=== PATIENT | male | born 1940 | race African-American/Black ===

== ENCOUNTER 2016-04-19 11:30 | Outpatient (CLI) | payer MEDICARE, OTHER | END 2016-04-19 11:31 | disposition home or self-care (01) | DX: I42.9 Cardiomyopathy, unspecified (principal); R06.09 Other forms of dyspnea ==

== ENCOUNTER 2017-05-15 12:41 | Outpatient (CLI) | payer MEDICARE, OTHER | END 2017-05-15 12:42 | disposition critical access hospital (66) | LOC: EMS 12:41 | PROVIDERS: ATTEND Surgery | DX: R41.82 Altered mental status, unspecified (principal) | CPT/HCPCS: A0425; A0427 ==

== ENCOUNTER 2017-05-15 12:59 | Inpatient (IN) | payer MEDICARE, OTHER ==
--- NOTE | 2017-05-15 13:20 | ED Physician Documentation ---
History of Present Illness - Stated complaint Stated Complaint: ALOC - Chief complaint Chief Complaint: General - History obtained from History obtained from: Patient, EMS - History of Present Illness Timing: Today (76-year-old gentleman with history of multiple myeloma, coronary disease with biventricular AICD, chronic left bundle branch block congestive heart failure, type 2 diabetes on insulin and COPD on home oxygen. He is he has been sick for a few days with cough and increased shortness of breath. He says he was seen in the clinic 2 days ago and it was determined he did not have pneumonia. He was started on steroids. I guess his found him obtunded on the couch and paramedics were summoned and found him unresponsive with a blood sugar that was 17. He was administered IV D50 and he did not respond, a second blood sugar was still low, after a second dose of IV D50 and he became conscious. He has poor recollection of the events for today but does admit to having severe chills and cough and increased shortness of breath over his baseline. He has been on steroids for 2 days.) Review of Systems Constitutional: reports: Chills, Fatigue Cardiac: denies: Chest pain / pressure, Palpitations Respiratory: reports: Dyspnea, Cough GI: reports: Other (Protuberant abdominal wall/umbilical hernia that is always out per him.). denies: Abdominal Pain Musculoskeletal: reports: Extremity swelling (Pedal edema that is not greater than his baseline) PD PAST MEDICAL HISTORY - Past Medical History Cardiovascular: Congestive heart failure, Hypertension, High cholesterol, Coronary artery disease, DE, Atrial fibrillation, Arrhythmia Respiratory: None Neuro: None Endocrine/Autoimmune: Type 2 diabetes, HyPOthyroidism GI: Chronic constipation, Pancreatitis : Renal insuffiency HEENT: None Psych: None Musculoskeletal: Osteoarthritis, Gout Derm: None - Past Surgical History Past Surgical History: Yes Ortho: Knee replacement Cardiovascular: Pacemaker, AICD - Present Medications Home Medications: Ambulatory Orders Medication Instructions Recorded Confirmed Allopurinol 300 mg PO DAILY 01/19/13 05/15/17 Digoxin [Lanoxin] 125 mcg PO DAILY 01/19/13 05/15/17 Furosemide [Lasix] 160 mg PO DAILY 01/19/13 05/15/17 Levothyroxine Sodium [Levoxyl] 125 mcg PO QDAC 01/19/13 05/15/17 Lovastatin [Altoprev] 20 mg PO HS 01/19/13 05/15/17 Potassium Chloride 20 meq PO DAILY 01/19/13 05/15/17 Ranitidine HCl [Acid Control] 150 mg PO BID 01/19/13 05/15/17 Zolpidem [Ambien] 10 mg PO QPM PRN 01/19/13 05/15/17 Omeprazole [PriLOSEC] 20 mg PO QPM 08/13/13 05/15/17 Metoclopramide [Reglan] 5 mg PO TID PRN 09/02/14 05/15/17 Alprazolam 0.5 mg PO TID PRN 01/13/16 05/15/17 Carvedilol 25 mg PO BID 01/13/16 05/15/17 Cyclobenzaprine HCl 5 mg PO TID PRN 01/13/16 05/15/17 Dexamethasone 20 mg PO FR 01/13/16 05/15/17 Doxazosin Mesylate 2 mg PO QPM 01/13/16 05/15/17 Hydromorphone HCl [Dilaudid] 4 mg PO QID PRN 01/13/16 05/15/17 Losartan Potassium [Losartan 100 mg PO DAILY 05/15/17 05/15/17 Potassium] fentaNYL [Fentanyl 75mcg patch] 1 each TD Q3D 05/15/17 05/15/17 - Allergies Allergies/Adverse Reactions: Allergies Allergy/AdvReac Type Severity Reaction Status Date / Time oxycodone HCl * Allergy Intermediate unknown Verified 01/29/17 11:49 [From Roxicet] rosiglitazone maleate * Allergy Intermediate Blood in Verified 01/29/17 11:49 [From Avandia] Urine valsartan [From Exforge] Allergy Intermediate Abd pain, Verified 01/29/17 11:49 sweats, nausea acetic acid Allergy Mild makes Verified 01/29/17 11:49 scalp itch amlodipine besylate * Allergy Unknown Abd pain, Verified 01/29/17 11:49 [From Exforge] sweats, nausea celecoxib [From Celebrex] Allergy Unknown unknown Verified 01/29/17 11:49 iron Allergy Unknown Verified 01/29/17 11:49 - Social History Does the pt smoke?: Yes Smoking Status: Current every day smoker Does the pt drink ETOH?: No Does the pt have substance abuse?: No - Family History Family history: reports: Non contributory - Immunizations Immunizations are current?: No Immunizations: Other immun not current - POLST Patient has POLST: Yes PD ED PE NORMAL - Vitals Vital signs reviewed: Yes - General General: Other (He is alert and oriented, but has poor recollection of the events for the day, he has labored breathing and poor pulse oximetries despite being on a nasal cannula.) - HEENT HEENT: PERRL, EOMI - Neck Neck: Supple, no meningeal sign, No bony TTP - Cardiac Cardiac: Other (Hard to make out the details of his heart rate and rhythm and sounds given loud breath sounds and labored breathing.) - Respiratory Respiratory: Other (Loud rhonchorous breath sounds with tachypnea) - Abdomen Abdomen: Other (Distended belly with a protuberant umbilical hernia, no tenderness.) - Back Back: No CVA TTP, No spinal TTP - Derm Derm: Normal color, Warm and dry - Extremities Extremities: Other (Mild pedal edema up to the mid calf, pitting, symmetric.) - Neuro Neuro: Alert and oriented X 3, Normal speech Eye Opening: Spontaneous Motor: Obeys Commands Verbal: Oriented GCS Score: 15 - Psych Psych: Normal mood, Normal affect Results - Vitals Vitals: Vital Signs - 24 hr 05/15/17 05/15/17 05/15/17 12:59 13:26 14:48 Temperature 36.1 C L 36.2 C L Heart Rate 90 111 H 102 H Respiratory 22 18 33 H Rate Blood Pressure 158/101 H 131/79 H 132/84 H O2 Saturation 85 L 100 96 05/15/17 15:58 Temperature 37.1 C Heart Rate 93 Respiratory 27 H Rate Blood Pressure 119/72 O2 Saturation 92 Oxygen O2 Source Room air - EKG (time done) 1326 Rate: Rate (enter#) (99) Rhythm: Other (Underlying atrial fibrillation with ventricular paced complexes, no other gross abnormality.) Computer interpretation: Agree with computer - Labs Labs: Laboratory Tests 05/15/17 05/15/17 05/15/17 13:20 13:48 13:48 WBC 10.0 RBC 3.35 L Hgb 10.4 L Hct 32.8 L MCV 97.7 H MCH 31.1 H MCHC 31.8 L RDW 18.0 H Plt Count 132 MPV 8.6 Neut # 7.9 H Lymph # 1.5 Jones # 0.6 Eos # 0.1 Baso # 0.0 Absolute Nucleated RBC 0.02 Nucleated RBC % 0.2 PT 12.0 INR 1.1 APTT 28.6 D-Dimer 389.1 H Sodium Potassium Chloride Carbon Dioxide Anion Gap BUN Creatinine Estimated GFR (MDRD) Glucose Lactic Acid Calcium Magnesium Total Bilirubin AST ALT Alkaline Phosphatase Total Creatine Kinase CK-MB (CK-2) Troponin I Total Protein Albumin Globulin Albumin/Globulin Ratio Lipase TSH Urine Color YELLOW Urine Clarity CLOUDY Urine pH 5.5 Ur Specific Anson 1.015 Urine Protein NEGATIVE Urine Glucose (UA) 250 H Urine Ketones NEGATIVE Urine Occult Blood NEGATIVE Urine Nitrite POSITIVE H Urine Bilirubin NEGATIVE Urine Urobilinogen 0.2 (NORMAL) Ur Leukocyte Esterase SMALL H Urine RBC 0-5 Urine WBC 6-10 H Ur Squamous Epith Cells NONE SEEN Urine Bacteria Many H Ur Microscopic Review INDICATED Urine Culture Comments INDICATED Last Dose Date Last Dose Time Digoxin Ethyl Alcohol 05/15/17 05/15/17 05/15/17 13:48 13:48 13:48 WBC RBC Hgb Hct MCV MCH MCHC RDW Plt Count MPV Neut # Lymph # Jones # Eos # Baso # Absolute Nucleated RBC Nucleated RBC % PT INR APTT D-Dimer Sodium 140 Potassium 4.3 Chloride 96 L Carbon Dioxide 33 H Anion Gap 11.0 BUN 32 H Creatinine 1.5 H Estimated GFR (MDRD) 55 L Glucose 197 H Lactic Acid 1.3 Calcium 10.1 Magnesium 1.9 Total Bilirubin 0.8 AST 18 ALT 20 Alkaline Phosphatase 61 Total Creatine Kinase 89 CK-MB (CK-2) 6.6 H Troponin I 0.20 Total Protein 6.7 Albumin 3.7 Globulin 3.0 Albumin/Globulin Ratio 1.2 Lipase < 10 L TSH Urine Color Urine Clarity Urine pH Ur Specific Anson Urine Protein Urine Glucose (UA) Urine Ketones Urine Occult Blood Urine Nitrite Urine Bilirubin Urine Urobilinogen Ur Leukocyte Esterase Urine RBC Urine WBC Ur Squamous Epith Cells Urine Bacteria Ur Microscopic Review Urine Culture Comments Last Dose Date Last Dose Time Digoxin Ethyl Alcohol < 5.0 05/15/17 05/15/17 13:48 13:48 WBC RBC Hgb Hct MCV MCH MCHC RDW Plt Count MPV Neut # Lymph # Jones # Eos # Baso # Absolute Nucleated RBC Nucleated RBC % PT INR APTT D-Dimer Sodium Potassium Chloride Carbon Dioxide Anion Gap BUN Creatinine Estimated GFR (MDRD) Glucose Lactic Acid Calcium Magnesium Total Bilirubin AST ALT Alkaline Phosphatase Total Creatine Kinase CK-MB (CK-2) Troponin I Total Protein Albumin Globulin Albumin/Globulin Ratio Lipase TSH 0.58 Urine Color Urine Clarity Urine pH Ur Specific Anson Urine Protein Urine Glucose (UA) Urine Ketones Urine Occult Blood Urine Nitrite Urine Bilirubin Urine Urobilinogen Ur Leukocyte Esterase Urine RBC Urine WBC Ur Squamous Epith Cells Urine Bacteria Ur Microscopic Review Urine Culture Comments Last Dose Date Unknown Last Dose Time Unknown Digoxin 1.8 Ethyl Alcohol - Rads (name of study) 1v CHest Radiology: EMP read contemporaneously (LLL PNA) PD MEDICAL DECISION MAKING - ED course ED course: 76-year-old gentleman with multiple comorbidities presents with labored breathing, hypoxemia, and hypoglycemia that was fairly resistant to treatment at home and required 2 A of D50 prehospital. On examination now he is labored breathing and some pedal edema which although he says is at his baseline he also admits his weight is up and his thinks the pedal edema is worse than normal. He is found to have both a UTI and pneumonia which is covered with Rocephin and Levaquin. He will be admitted for further evaluation and treatment. Call to the hospitalist for admission at 3:05 PM. Departure - Departure Disposition: [facility] DC/Xfer Clinical Impression: Acute UTI (urinary tract infection), Hypoglycemia, Hypoxemia Diabetes Qualifiers: Diabetes mellitus type: type 2 Diabetes mellitus complication status: with hypoglycemia Diabetes mellitus complication detail: with coma Diabetes mellitus adjunct faculty for medical terminology insulin use: with adjunct faculty for medical terminology use Qualified Code(s): E11.641 - Type 2 diabetes mellitus with hypoglycemia with coma Pneumonia Qualifiers: Pneumonia type: due to unspecified organism Laterality: left Lung location: lower lobe of lung Qualified Code(s): J18.1 - Lobar pneumonia, unspecified organism Condition: Serious
[2017-05-15 13:48] LABS: BILIRUBIN,URINE NEGATIVE (NEGATIVE); GLUCOSE, URINE (UA) 250 mg/dL (NEGATIVE); KETONES,URINE (UA) NEGATIVE (NEGATIVE); LEUKOCYTE ESTERASE, URINE SMALL (NEGATIVE); NITRITE,URINE POSITIVE (NEGATIVE); OCCULT BLOOD,URINE NEGATIVE (NEGATIVE); PH,URINE 5.5 PH (5.0-7.5); PROTEIN,URINE NEGATIVE (NEGATIVE); UROBILINOGEN,URINE 0.2 (NORMAL) E.U./dL (NORMAL)
[2017-05-15 13:49] LABS: CLARITY,URINE CLOUDY (CLEAR)
[2017-05-15] MEDS ORDERED: cefTRIAXone 1 GM in SODIUM CHLORIDE 0.9% MINIBAG 100 ML IV STA (13:56)
[2017-05-15 14:04] LABS: BACTERIA,URINE Many /HPF (None Seen); RBC,URINE 0-5 /HPF (0-5); SQUAMOUS EPITHELIAL CELL,UR NONE SEEN (<= Few)
--- NOTE | 2017-05-15 14:10 | XRAY Report ---
EXAM: CHEST RADIOGRAPHY EXAM DATE: 05/15/2017 02:02 PM. CLINICAL HISTORY: Cough rigors. COMPARISON: 01/13/2016. TECHNIQUE: 1 view. FINDINGS: Lungs/Pleura: Left lower lobe infiltrate. No effusion. Mediastinum: Stable cardiomegaly. Other: Multi lead pacer defibrillator tips in right atrium, right ventricle and coronary sinus. IMPRESSION: 1. Left lower lobe infiltrate. 2. Moderate stable cardiomegaly RADIA Referring Provider Line: [phone] SITE ID: [id number]
[2017-05-15 14:15] LABS: BASOPHILS % (AUTO) 0.1 %; EOSINOPHILS # (AUTO) 0.1 10^3/uL (0.0-0.7); EOSINOPHILS % (AUTO) 0.5 %; HGB - HEMOGLOBIN 10.4 g/dL (14.0-18.0); LYMPHOCYTES # (AUTO) 1.5 10^3/uL (1.5-3.5); LYMPHOCYTES % (AUTO) 14.7 %; MEAN CORPUSCULAR HEMOGLOBIN 31.1 pg (27.0-31.0); MEAN CORPUSCULAR HGB CONC 31.8 g/dL (32.0-36.0); MEAN CORPUSCULAR VOLUME 97.7 fL (80.0-94.0); MEAN PLATELET VOLUME 8.6 fL (7.4-11.4); MONOCYTES # (AUTO) 0.6 10^3/uL (0.0-1.0); MONOCYTES % (AUTO) 5.6 %; NEUTROPHILS # (AUTO) 7.9 10^3/uL (1.5-6.6); NEUTROPHILS % (AUTO) 79.1 %; PLT - PLATELET COUNT 132 10^3/uL (130-450); RED BLOOD COUNT 3.35 10^6/uL (4.70-6.10)
[2017-05-15 14:23] LABS: INR 1.1 (0.8-1.2)
[2017-05-15 14:27] LABS: ALBUMIN 3.7 g/dL (3.2-5.5); ALBUMIN/GLOBULIN RATIO 1.2 (1.0-2.2); ALKALINE PHOSPHATASE 61 IU/L (42-121); ALT ALANINE AMINOTRANSFERASE 20 IU/L (10-60); AST ASPARTATE AMINOTRANSFERASE 18 IU/L (10-42); BILIRUBIN,TOTAL 0.8 mg/dL (0.2-1.0); BUN - BLOOD UREA NITROGEN 32 mg/dL (6-20); CALCIUM 10.1 mg/dL (8.5-10.3); CARBON DIOXIDE - CO2 33 mmol/L (21-32); CHLORIDE 96 mmol/L (101-111); CK- CREATINE KINASE 89 IU/L (22-269); CREATININE 1.5 mg/dL (0.6-1.2); GFR - MDRD 55 (>89); GLUCOSE 197 mg/dL (70-100); LIPASE < 10 U/L (22-51); MAGNESIUM 1.9 mg/dL (1.7-2.8); SODIUM 140 mmol/L (135-145); TOTAL PROTEIN 6.7 g/dL (6.7-8.2)
[2017-05-15] MEDS ORDERED: levoFLOXacin 750 MG/150 ML 750 MG/150 ML BAG IV ONE (14:27)
[2017-05-15 14:30] LABS: TROPONIN I 0.2 ng/mL (<0.49)
[2017-05-15 14:31] LABS: DIGOXIN 1.8 ng/mL
[2017-05-15 14:32] LABS: CREATINE KINASE MB 6.6 ng/mL (0.6-6.3)
[2017-05-15 14:43] LABS: D-DIMER 389.1 ng/mL (200.0-255.0)
[2017-05-15] MEDS ORDERED: TEMAZEPAM 15 MG CAPSULE PO PRN (15:42)
[2017-05-15] MEDS ORDERED: ACETAMINOPHEN 325 MG TABLET PO PRN (15:42)
[2017-05-15] MEDS ORDERED: PROCHLORPERAZINE 10 MG/2 ML VIAL IVP PRN (15:42)
[2017-05-15] MEDS ORDERED: CYCLOBENZAPRINE 10 MG TABLET PO PRN (15:48)
[2017-05-15] MEDS ORDERED: METOCLOPRAMIDE 10 MG TABLET PO PRN (15:48)
[2017-05-15] MEDS ORDERED: ALPRAZolam 0.25 MG TABLET PO PRN (15:48)
[2017-05-15] MEDS ORDERED: ZOLPIDEM 5 MG TABLET PO PRN (15:48)
[2017-05-15] MEDS: INSULIN ASPART 300 UNIT/3 ML PEN SUBQ SCH ×2 (17:10→21:27)
[2017-05-15] MEDS ORDERED: DEXTROSE GEL 37.5 GM TUBE PO ONE ×2 (17:58→17:59)
[2017-05-15] MEDS ORDERED: fentaNYL 25 MCG PATCH TOP SCH (18:00)
[2017-05-15] MEDS ORDERED: fentaNYL 50 MCG PATCH TOP SCH (18:00)
[2017-05-15] MEDS: SODIUM CHLORIDE FLUSH 0.9% 10 ML SYRINGE IVP SCH (19:45)
[2017-05-15] MEDS: DEXTROSE 5% 1,000 ML IV SCH (19:45)
[2017-05-15] MEDS: CARVEDILOL 12.5 MG TABLET PO SCH (21:18)
[2017-05-15] MEDS: PANTOPRAZOLE 40 MG TABLET PO SCH (21:19)
[2017-05-15] MEDS: DOXAZOSIN 1 MG TABLET PO SCH (21:19)
[2017-05-16] MEDS: SODIUM CHLORIDE FLUSH 0.9% 10 ML SYRINGE IVP SCH ×3 (01:03→21:16)
[2017-05-16 05:58] LABS: BASOPHILS % (AUTO) 0.2 %; EOSINOPHILS # (AUTO) 0.1 10^3/uL (0.0-0.7); EOSINOPHILS % (AUTO) 0.7 %; LYMPHOCYTES # (AUTO) 1.4 10^3/uL (1.5-3.5); LYMPHOCYTES % (AUTO) 15.5 %; MEAN CORPUSCULAR HEMOGLOBIN 30.6 pg (27.0-31.0); MEAN CORPUSCULAR HGB CONC 31.6 g/dL (32.0-36.0); MEAN CORPUSCULAR VOLUME 96.9 fL (80.0-94.0); MEAN PLATELET VOLUME 9.8 fL (7.4-11.4); MONOCYTES # (AUTO) 0.5 10^3/uL (0.0-1.0); MONOCYTES % (AUTO) 5.6 %; NEUTROPHILS # (AUTO) 7.2 10^3/uL (1.5-6.6); PLT - PLATELET COUNT 112 10^3/uL (130-450); RED BLOOD COUNT 2.93 10^6/uL (4.70-6.10); RED CELL DISTRIBUTION WIDTH 17.6 % (12.0-15.0); WHITE BLOOD COUNT 9.2 x10^3/uL (4.8-10.8)
[2017-05-16 05:59] LABS: CALCIUM 9.4 mg/dL (8.5-10.3); CREATININE 1.4 mg/dL (0.6-1.2)
[2017-05-16] MEDS: LEVOTHYROXINE 125 MCG TABLET PO SCH (06:14)
[2017-05-16 06:21] LABS: HEMOGLOBIN A1C 0.67 g/dL; HEMOGLOBIN A1C % 8.3 % (4.6-6.2)
[2017-05-16] MEDS: DEXTROSE 5% 1,000 ML IV SCH (07:45)
[2017-05-16] MEDS: IPRATROPIUM/ALBUTEROL 3 ML NEB INH PRN (08:17)
[2017-05-16] MEDS: INSULIN ASPART 300 UNIT/3 ML PEN SUBQ SCH ×4 (08:19→21:19)
[2017-05-16] MEDS: cefTRIAXone 1 GM in SODIUM CHLORIDE 0.9% MINIBAG 100 ML IV SCH (08:24)
[2017-05-16] MEDS: POTASSIUM CHLORIDE 10 MEQ CAPSULE PO SCH (08:39)
[2017-05-16] MEDS: ALLOPURINOL 100 MG TABLET PO SCH (08:39)
[2017-05-16] MEDS: POLYETHYLENE GLYCOL 3350 17 GM PACKET PO SCH (08:40)
[2017-05-16] MEDS: DIGOXIN 125 MCG TABLET PO SCH (08:40)
[2017-05-16] MEDS: FUROSEMIDE 40 MG TABLET PO SCH (08:40)
[2017-05-16] MEDS: ENOXAPARIN 40 MG/0.4 ML SYRINGE SUBQ SCH (08:40)
[2017-05-16] MEDS: CARVEDILOL 12.5 MG TABLET PO SCH ×2 (08:40→21:16)
[2017-05-16] MEDS: LOSARTAN 50 MG TABLET PO SCH (08:49)
[2017-05-16] MEDS ORDERED: FAMOTIDINE 20 MG TABLET PO SCH (09:00)
--- NOTE | 2017-05-16 11:42 | HISTORY & PHYSICAL EXAMINATION ---
DATE OF SERVICE: 05/15/2017 Physician: Kerri Conn MD HISTORY OF PRESENT ILLNESS: This is a 76-year-old black male with a history of COPD, coronary artery disease, cardiomyopathy with an EF of 25%, biventricular defibrillator in place, diabetes on diet only, requiring O2 at home. The patient presents with several- day history of increasing shortness of breath and a cough for which he was started on a Medrol Dosepak. His shortness of breath continued, and cough had paroxysms. This morning he began to have confusion, and the found him unconscious on the sofa. She called an ambulance, and he was found to have a pulse and blood pressure, but a fingerstick glucose of 17, for which he got an amp of dextrose, which did not help, and then a second fingerstick still showed a relatively low glucose for which he got a second amp of D50 and then he awoke. He was awake during the entire ambulance ride. In the emergency room, he described his cough and shortness of breath as being "chronic." He was found to have pneumonia as well as CHF on chest x- ray and a UTI by urinalysis. PAST MEDICAL HISTORY 1. COPD on oxygen at home. 2. CAD with ischemic cardiomyopathy and defibrillator/biventricular pacer. 3. Diabetes, on diet only. He was taken off Insulin, then oral agents as well. 4. The patient reports that he also has memory loss because of his other diagnoses. He no longer drives. ALLERGIES 1. OXYCODONE. 2. CRESTOR. 3. VALSARTAN. 4. ACETIC ACID. 5. EXFORGE. 6. CELEBREX. 7. IRON TABLETS. MEDICATIONS AT HOME 1. Alprazolam 0.5 mg t.i.d. p.r.n. anxiety. 2. Fentanyl patch topically of 75 mcg. 3. Dilaudid 4 mg p.o. q.i.d. p.r.n. pain. 4. Allopurinol 300 p.o. daily. 5. Carvedilol 25 p.o. b.i.d. 6. Cyclobenzaprine 5 mg p.o. t.i.d. p.r.n. 7. Doxazosin 2 mg p.o. at night. 8. Lasix 160 mg p.o. daily. 9. Dexamethasone just recently started in a Dosepak. 10. Digoxin 125 mcg p.o. daily. 11. Levothyroxine 125 mcg p.o. daily. 12. Losartan 100 mg p.o. daily. 13. Lovastatin 20 mg at bedtime. 14. Prilosec 20 mg q.p.m. 15. Potassium chloride 20 mEq p.o. daily. 16. Reglan 5 mg p.o. t.i.d. p.r.n. nausea. 17. Ambien 10 mg p.o. q. p.m. p.r.n. 18. He no longer takes insulin but was on Lantus 23 units q.p.m. SOCIAL HISTORY: The patient is a smoker of 3 cigarettes per day. He denies any alcohol or illicit drug use. He no longer drives. He states that his is his caregiver, and she also takes him to his appointments. FAMILY HISTORY: No inherited diseases. PHYSICAL EXAMINATION GENERAL: A male who is in no distress. He is confused when he answers some of his questions. He is warm and dry. VITAL SIGNS: Blood pressure 123/67, pulse is 86 in sinus rhythm. Fever of 38.8 , O2 saturation is 97 percent on 4 liters nasal cannula supplemental oxygen. HEENT: Moist oral mucosa. Poor dentition. NECK: No JVD in a vertical position. No carotid bruits, thyromegaly, or lymphadenopathy. CHEST: Left-sided basilar rales, diminished breath sounds diffusely but no wheezes or rhonchi. HEART: Sounds are normal. No audible murmur. ABDOMEN: Soft, positive bowel sounds, nontender. EXTREMITIES: Trace to 1+ pretibial edema bilaterally to the knees. No clubbing or cyanosis. NEUROLOGIC: Grossly intact except for the intermittent confusion and memory problem. LABORATORY DATA: Sodium 140, potassium 4.3, BUN 32, creatinine 1.5.; his baseline creatinine is 1.5. The glucose was 197 in the emergency room, but subsequently his glucoses are running as low as 33, 51, 42. Normal liver tests. The first troponin is 0.20. Normal lipase. Normal INR of 1.1. White blood count 10 with a left shift, hemoglobin 10.4 with MCV of 97, platelet count normal at 132. Urinalysis showed negative ketones, positive glucose, positive nitrites, small leukocyte esterase positive, and many bacteria. Serum toxicology showed a digoxin level of 1.8 and no alcohol in the blood. CHEST X-RAY: Moderate stable cardiomegaly, cephalization of flow, and left lower lobe infiltrate. EKG: Indeterminate underlying rhythm, possibly sinus with a first-degree block , frequent ventricular paced beats but also frequent PVCs and a ventricular couplet. IMPRESSION 1. Community-acquired pneumonia, left lower lobe, with a fever, cough, and hypoxemia. 2. Acute urinary tract infection. 3. Hypoglycemia with unconsciousness and persistent hypoglycemia despite no insulin. 4. Acute on chronic systolic heart failure with biventricular defibrillator in place. 5. Diabetes, only diet controlled currently. 6. Hypoglycemia, possibly related to pneumonia and urinary tract infection. 7. Chronic kidney disease. 8. Elevated troponin, which may be secondary to heart failure or renal insufficiency, but rule out myocardial infarction. PLAN: Admit the patient to a medical/surgical bed. Telemetry. Cycle troponins to rule out myocardial infarction. Obtain an Echo to reestablish left ventricular and right ventricular contractility. Check PA pressure by echo. Culture his urine and his blood. Begin empiric antibiotics using Rocephin and Levaquin. Continue with gentle diuresis with his p.o. Lasix. No IV Lasix given his renal insufficiency and adequate saturations on supplemental oxygen. Treat his low glucoses with a D5 IV drip, but also order sliding scale insulin coverage. Continue his other cardiac medications such as the carvedilol, losartan, and statin. Follow his electrolytes, creatinine, magnesium, hemoglobin, and white count. CODE STATUS: FULL CODE. DEEP VENOUS THROMBOSIS PROPHYLAXIS: Lovenox. ATTESTATION: The patient is expected to be discharged or transferred to another facility within 96 hours: Yes. TD: 05/15/2017 20:51 CRISTIAN
[2017-05-16] MEDS: levoFLOXacin 500 MG/100 ML 500 MG/100 ML BAG IV SCH (13:05)
[2017-05-16] MEDS: SODIUM CHLORIDE FLUSH 0.9% 10 ML SYRINGE IVP PRN (13:05)
[2017-05-16] MEDS ORDERED: ZINC OXIDE 20% OINT 28.35 GM TUBE TOP PRN (16:46)
--- NOTE | 2017-05-16 18:54 | PROVIDER PROGRESS NOTE ---
Assessment/Plan - Problem List (1) Acute on chronic systolic heart failure Assessment/Plan: Improved SOB and able to speak without SOB. Continue diuresis, monitoring Is and Os, labs and daily weight. (2) V-tach Assessment/Plan: Pt has higher risk for VT due to severe cardiomyopathy, but has a defibrillator. Continue to monitor K and Mg. (3) Community acquired pneumonia Assessment/Plan: No cough or sputum production. Continue iv antibiotics. (4) Acute UTI (urinary tract infection) Assessment/Plan: Continue antibiotics. (5) Hypoglycemia Assessment/Plan: No further low glucoses. Continue glu monitoring. (6) Anemia Assessment/Plan: Significant anemia, posibly of chronic disease. Will check stool guaic and Iron panel, B12, folate. (7) Diabetes mellitus Assessment/Plan: Continue DM diet and Insulin coverage. (8) CKD (chronic kidney disease) Assessment/Plan: Continue slow diuresis, so as not to exacerbate renal function any further. Monitor BUN/creat. - Current Meds Current Meds: Current Medications Generic Name Dose Route Start Last Admin Trade Name Freq PRN Reason Stop Dose Admin Acetaminophen 650 mg 05/15/17 15:42 05/15/17 17:09 Tylenol PO 650 mg Q4HR PRN Administration Pain or Fever > 38C (100.4F) Albuterol/Ipratropium 3 ml 05/16/17 00:07 05/16/17 08:17 Duoneb INH 3 ml Q4HR PRN Administration Wheezing Allopurinol 300 mg 05/16/17 09:00 05/16/17 08:39 Zyloprim PO 300 mg DAILY JIM Administration Carvedilol 25 mg 05/15/17 21:00 05/16/17 08:40 Coreg PO 25 mg BID JIM Administration Digoxin 125 mcg 05/16/17 09:00 05/16/17 08:40 Lanoxin PO 125 mcg DAILY JIM Administration Doxazosin Mesylate 2 mg 05/15/17 21:00 05/15/17 21:19 Cardura PO 2 mg QPM JIM Administration Enoxaparin Sodium 40 mg 05/16/17 09:00 05/16/17 08:40 Lovenox SUBQ 40 mg DAILY JIM Administration Fentanyl 1 patch 05/15/17 18:00 05/15/17 19:47 Duragesic TOP 1 patch Q3D JIM Administration Fentanyl 1 patch 05/15/17 18:00 05/15/17 19:46 Duragesic TOP 1 patch Q3D JIM Administration Furosemide 160 mg 05/16/17 09:00 05/16/17 08:40 Lasix PO 160 mg DAILY JIM Administration Ceftriaxone Sodium 1 gm/ 100 mls @ 200 mls/hr 05/16/17 09:00 05/16/17 09:00 Sodium Chloride IV Infused DAILY JIM Infusion Levofloxacin 500 mg in 100 mls @ 100 mls/hr 05/16/17 14:00 05/16/17 15:00 Levaquin 500 Mg/100 Ml IV Infused Q24H JIM Infusion Dextrose 1,000 mls @ 83.333 mls/hr 05/15/17 19:00 05/16/17 16:25 D5w IV 0 mls/hr .Q12H JIM Infusion Insulin Aspart 1 - 5 unit 05/15/17 17:00 05/16/17 16:24 Novolog SUBQ 3 unit 0800,1200,1700,2100 JIM Administration Protocol Levothyroxine Sodium 125 mcg 05/16/17 07:00 05/16/17 06:14 Synthroid PO 125 mcg QDAC JIM Administration Losartan Potassium 100 mg 05/16/17 09:00 05/16/17 08:49 Cozaar PO 100 mg DAILY JIM Administration Pantoprazole Sodium 40 mg 05/15/17 21:00 05/15/17 21:19 Protonix PO 40 mg QPM JIM Administration Polyethylene Glycol 17 gm 05/16/17 09:00 05/16/17 08:40 Miralax PO Not Given DAILY JIM Potassium Chloride 20 meq 05/16/17 08:00 05/16/17 08:39 Micro-K PO 20 meq DAILYWM JIM Administration Ranitidine HCl 150 mg 05/15/17 21:00 05/16/17 08:40 Zantac PO 150 mg BID JIM Administration Sodium Chloride 10 ml 05/15/17 15:42 05/16/17 13:05 Normal Saline Flush 0.9% IVP 10 ml PRN PRN Administration NEEDED PER PROVIDER ORDERS Sodium Chloride 10 ml 05/15/17 17:00 05/16/17 08:31 Normal Saline Flush 0.9% IVP 10 ml 0100,0900,1700 JIM Administration - Lab Result Fish Bone Diagrams: 05/16/17 05:40 05/16/17 05:40 - Additional Planning My Orders: My Active Orders 05/15/17 18:00 fentaNYL 25 MCG PATCH [Duragesic] 1 patch TOP Q3D fentaNYL 50 MCG PATCH [Duragesic] 1 patch TOP Q3D 05/15/17 19:00 Dextrose 5% [D5w] 1,000 ml IV 83.333 mls/hr 05/15/17 21:00 Carvedilol [Coreg] 25 mg PO BID Doxazosin [Cardura] 2 mg PO QPM Pantoprazole [Protonix] 40 mg PO QPM raNITIdine [Zantac] 150 mg PO BID 05/16/17 07:00 Levothyroxine [Synthroid] 125 mcg PO QDAC 05/16/17 08:00 Potassium Chloride [Micro-K] 20 meq PO DAILYWM 05/16/17 09:00 Allopurinol [Zyloprim] 300 mg PO DAILY Digoxin [Lanoxin] 125 mcg PO DAILY Furosemide [Lasix] 160 mg PO DAILY Losartan [Cozaar] 100 mg PO DAILY cefTRIAXone [Rocephin] 1 gm Sodium Chloride 0.9% Minibag [Normal Saline 0.9% Minibag] 100 ml IV DAILY 05/16/17 14:00 levoFLOXacin 500 MG/100 ML [Levaquin 500 mg/100 ml] 500 mg in 100 ml IV Q24H 05/16/17 16:46 Zinc Oxide 20% Oint [Zinc Oxide] 1 applic TOP PRN PRN Subjective - Subjective Patient Reports: Feeling Better Nursing Reports: Other (Wants a male to help him to bathroom, not a female. Pt had a 7 beat run of monomorphic VT on telemetry, asymptomatic.) Objective Vital Signs: Vital Signs - 24 hr 05/15/17 05/15/17 05/15/17 18:48 19:59 23:01 Temperature 37.3 C 37.2 C 36.8 C Heart Rate Heart Rate [ 93 84 Brachial] Respiratory 16 16 Rate Blood Pressure 116/86 H 125/95 H [Right Brachial artery] O2 Saturation 98 100 05/16/17 05/16/17 05/16/17 00:40 01:06 06:14 Temperature 37.5 C 37.3 C Heart Rate 90 Heart Rate [ 83 68 Brachial] Respiratory 20 18 20 Rate Blood Pressure 105/64 134/77 H [Right Brachial artery] O2 Saturation 100 100 05/16/17 05/16/17 05/16/17 07:26 08:23 14:06 Temperature 37.1 C 36.5 C Heart Rate 78 Heart Rate [ 81 77 Brachial] Respiratory 18 22 18 Rate Blood Pressure 117/65 112/63 [Right Brachial artery] O2 Saturation 98 99 05/16/17 16:03 Temperature 36.7 C Heart Rate Heart Rate [ 81 Brachial] Respiratory 20 Rate Blood Pressure 109/62 [Right Brachial artery] O2 Saturation 99 Oxygen O2 Source Nasal cannula I&O (Last 24 Hrs): Intake and Output Totals x24h 05/14/17 05/15/17 05/16/17 23:59 23:59 23:59 Intake Total 300 2782.215 Output Total 400 875 Balance -100 1907.215 General: Alert, Oriented x3 HEENT: Mucous membr. moist/pink Neck: Supple, No JVD Neuro: Non Focal Cardiovascular: Regular rate, No murmurs Respiratory: Breath sounds nml Abdomen: Soft Extremities: No edema (Trace edema) - Results Results: Laboratory Results WBC 9.2 x10^3/uL (4.8-10.8) 05/16/17 05:40 RBC 2.93 10^6/uL (4.70-6.10) L 05/16/17 05:40 Hgb 9.0 g/dL (14.0-18.0) L 05/16/17 05:40 Hct 28.4 % (42.0-52.0) L 05/16/17 05:40 MCV 96.9 fL (80.0-94.0) H 05/16/17 05:40 MCH 30.6 pg (27.0-31.0) 05/16/17 05:40 MCHC 31.6 g/dL (32.0-36.0) L 05/16/17 05:40 RDW 17.6 % (12.0-15.0) H 05/16/17 05:40 Plt Count 112 10^3/uL (130-450) L 05/16/17 05:40 MPV 9.8 fL (7.4-11.4) 05/16/17 05:40 Neut # 7.2 10^3/uL (1.5-6.6) H 05/16/17 05:40 Lymph # 1.4 10^3/uL (1.5-3.5) L 05/16/17 05:40 [place] # 0.5 10^3/uL (0.0-1.0) 05/16/17 05:40 Eos # 0.1 10^3/uL (0.0-0.7) 05/16/17 05:40 Baso # 0.0 10^3/uL (0.0-0.1) 05/16/17 05:40 Absolute Nucleated RBC 0.02 x10^3/uL 05/16/17 05:40 Nucleated RBC % 0.2 /100WBC 05/16/17 05:40 PT 12.0 secs (9.9-12.6) 05/15/17 13:48 INR 1.1 (0.8-1.2) 05/15/17 13:48 APTT 28.6 secs (24.9-33.3) 05/15/17 13:48 D-Dimer 389.1 ng/mL (200.0-255.0) H 05/15/17 13:48 Sodium 139 mmol/L (135-145) 05/16/17 05:40 Potassium 4.4 mmol/L (3.5-5.0) 05/16/17 05:40 Chloride 96 mmol/L (101-111) L 05/16/17 05:40 Carbon Dioxide 33 mmol/L (21-32) H 05/16/17 05:40 Anion Gap 10.0 (6-13) 05/16/17 05:40 BUN 30 mg/dL (6-20) H 05/16/17 05:40 Creatinine 1.4 mg/dL (0.6-1.2) H 05/16/17 05:40 Estimated GFR (MDRD) 60 (>89) L 05/16/17 05:40 Glucose 138 mg/dL (70-100) H 05/16/17 05:40 Glycated Hemoglobin 8.3 % (4.6-6.2) H 05/16/17 05:40 Estim Average Glucose 192 (70-100) H 05/16/17 05:40 Lactic Acid 1.3 mmol/L (0.5-2.2) 05/15/17 13:48 Calcium 9.4 mg/dL (8.5-10.3) 05/16/17 05:40 Magnesium 1.9 mg/dL (1.7-2.8) 05/15/17 13:48 Total Bilirubin 0.8 mg/dL (0.2-1.0) 05/15/17 13:48 AST 18 IU/L (10-42) 05/15/17 13:48 ALT 20 IU/L (10-60) 05/15/17 13:48 Alkaline Phosphatase 61 IU/L (42-121) 05/15/17 13:48 Total Creatine Kinase 89 IU/L (22-269) 05/15/17 13:48 CK-MB (CK-2) 6.6 ng/mL (0.6-6.3) H 05/15/17 13:48 Troponin I 0.26 ng/mL (<0.49) 05/16/17 05:40 Total Protein 6.7 g/dL (6.7-8.2) 05/15/17 13:48 Albumin 3.7 g/dL (3.2-5.5) 05/15/17 13:48 Globulin 3.0 g/dL (2.1-4.2) 05/15/17 13:48 Albumin/Globulin Ratio 1.2 (1.0-2.2) 05/15/17 13:48 Lipase < 10 U/L (22-51) L 05/15/17 13:48 TSH 0.58 uIU/mL (0.34-5.60) 05/15/17 13:48 Urine Color YELLOW 05/15/17 13:20 Urine Clarity CLOUDY (CLEAR) 05/15/17 13:20 Urine pH 5.5 PH (5.0-7.5) 05/15/17 13:20 Ur Specific [place] 1.015 (1.002-1.030) 05/15/17 13:20 Urine Protein NEGATIVE mg/dL (NEGATIVE) 05/15/17 13:20 Urine Glucose (UA) 250 mg/dL (NEGATIVE) H 05/15/17 13:20 Urine Ketones NEGATIVE mg/dL (NEGATIVE) 05/15/17 13:20 Urine Occult Blood NEGATIVE (NEGATIVE) 05/15/17 13:20 Urine Nitrite POSITIVE (NEGATIVE) H 05/15/17 13:20 Urine Bilirubin NEGATIVE (NEGATIVE) 05/15/17 13:20 Urine Urobilinogen 0.2 (NORMAL) E.U./dL (NORMAL) 05/15/17 13:20 Ur Leukocyte Esterase SMALL (NEGATIVE) H 05/15/17 13:20 Urine RBC 0-5 /HPF (0-5) 05/15/17 13:20 Urine WBC 6-10 /HPF (0-3) H 05/15/17 13:20 Ur Squamous Epith Cells NONE SEEN (<= Few) 05/15/17 13:20 Urine Bacteria Many /HPF (None Seen) H 05/15/17 13:20 Ur Microscopic Review INDICATED 05/15/17 13:20 Urine Culture Comments INDICATED 05/15/17 13:20 Last Dose Date Unknown 05/15/17 13:48 Last Dose Time Unknown 05/15/17 13:48 Digoxin 1.8 ng/mL 05/15/17 13:48 Ethyl Alcohol < 5.0 mg/dL 05/15/17 13:48 - Procedures Procedures: Procedures PACKED CELL TRANSFUSION (08/31/14)
[2017-05-16] MEDS: PANTOPRAZOLE 40 MG TABLET PO SCH (21:16)
[2017-05-16] MEDS: DOXAZOSIN 1 MG TABLET PO SCH (21:17)
[2017-05-17] MEDS: SODIUM CHLORIDE FLUSH 0.9% 10 ML SYRINGE IVP SCH ×3 (02:03→17:16)
[2017-05-17] MEDS: NS W/20 MEQ KCL 1,000 ML IV SCH ×2 (02:07→16:17)
[2017-05-17] MEDS: LEVOTHYROXINE 125 MCG TABLET PO SCH (06:38)
[2017-05-17] MEDS: IPRATROPIUM/ALBUTEROL 3 ML NEB INH PRN (07:33)
[2017-05-17] MEDS: LOSARTAN 50 MG TABLET PO SCH (08:18)
[2017-05-17] MEDS: FUROSEMIDE 40 MG TABLET PO SCH (08:19)
[2017-05-17] MEDS: POTASSIUM CHLORIDE 10 MEQ CAPSULE PO SCH (08:19)
[2017-05-17] MEDS: ALLOPURINOL 100 MG TABLET PO SCH (08:20)
[2017-05-17] MEDS: DIGOXIN 125 MCG TABLET PO SCH (08:20)
[2017-05-17] MEDS: CARVEDILOL 12.5 MG TABLET PO SCH ×2 (08:20→21:02)
[2017-05-17] MEDS: cefTRIAXone 1 GM in SODIUM CHLORIDE 0.9% MINIBAG 100 ML IV SCH (08:21)
[2017-05-17] MEDS: ENOXAPARIN 40 MG/0.4 ML SYRINGE SUBQ SCH (08:23)
[2017-05-17] MEDS: POLYETHYLENE GLYCOL 3350 17 GM PACKET PO SCH (08:23)
[2017-05-17] MEDS: INSULIN ASPART 300 UNIT/3 ML PEN SUBQ SCH ×4 (08:25→21:07)
[2017-05-17] MEDS: levoFLOXacin 500 MG/100 ML 500 MG/100 ML BAG IV SCH (13:19)
[2017-05-17] MEDS: HYDROmorphone 2 MG TABLET PO PRN (16:15)
[2017-05-17] MEDS ORDERED: FUROSEMIDE 20 MG/2 ML VIAL IVP ONE (16:55)
[2017-05-17] MEDS ORDERED: D5NS W/20 MEQ KCL 1,000 ML IV SCH (17:00)
[2017-05-17] MEDS ORDERED: THIAMINE INJ 100 MG, FOLIC ACID INJ 1 MG in SODIUM CHLORIDE 0.9% 100ML 100 ML IV SCH (17:00)
[2017-05-17] MEDS: MORPHINE 2 MG/ML CARPUJECT IVP PRN (20:30)
[2017-05-17] MEDS: PANTOPRAZOLE 40 MG TABLET PO SCH (21:01)
[2017-05-17] MEDS: DOXAZOSIN 1 MG TABLET PO SCH (21:02)
--- NOTE | 2017-05-17 23:00 | PROVIDER PROGRESS NOTE ---
Assessment/Plan - Problem List (1) Acute on chronic systolic heart failure Assessment/Plan: D5 was changed to NS by animal daycare provider, when glu levels were high. (D5 was needed for hypoglycemia on presentation). Will stop iv hydration and give 1 dose of higher iv Lasix. (2) V-tach Assessment/Plan: No further VTach seen. Pt has a defibrillator for treating with a shock, if a shockable rhythm develops. (3) Community acquired pneumonia Assessment/Plan: SOB and cough much improved. Continue empiric iv antibiotics for community acquired pneumonia. (4) Acute UTI (urinary tract infection) Assessment/Plan: iv antibiotics also cover GI/ organisms. (5) Hypoglycemia Assessment/Plan: Improved with iv D5. Possibly the reason was poor po intake yet remaining on the same Insulin doses. (6) Anemia Assessment/Plan: Very likely this is anemia of chronic disease (DM and Ischemic cardiomyopathy). Hgb not low enough to warrent a transfusion. (7) Diabetes mellitus Assessment/Plan: Continue diet and Insulin coverage. (8) CKD (chronic kidney disease) Assessment/Plan: Stable but elevated BUN/creat. - Current Meds Current Meds: Current Medications Generic Name Dose Route Start Last Admin Trade Name Freq PRN Reason Stop Dose Admin Acetaminophen 650 mg 05/15/17 15:42 05/15/17 17:09 Tylenol PO 650 mg Q4HR PRN Administration Pain or Fever > 38C (100.4F) Albuterol/Ipratropium 3 ml 05/16/17 00:07 05/17/17 07:33 Duoneb INH 3 ml Q4HR PRN Administration Wheezing Allopurinol 300 mg 05/16/17 09:00 05/17/17 08:20 Zyloprim PO 300 mg DAILY JIM Administration Carvedilol 25 mg 05/15/17 21:00 05/17/17 21:02 Coreg PO 25 mg BID JIM Administration Digoxin 125 mcg 05/16/17 09:00 05/17/17 08:20 Lanoxin PO 125 mcg DAILY JIM Administration Doxazosin Mesylate 2 mg 05/15/17 21:00 05/17/17 21:02 Cardura PO 2 mg QPM JIM Administration Enoxaparin Sodium 40 mg 05/16/17 09:00 05/17/17 08:23 Lovenox SUBQ 40 mg DAILY JIM Administration Fentanyl 1 patch 05/15/17 18:00 02/28/18 19:47 Duragesic TOP 1 patch Q3D JIM Administration Fentanyl 1 patch 05/15/17 18:00 05/15/17 19:46 Duragesic TOP 1 patch Q3D JIM Administration Furosemide 160 mg 05/16/17 09:00 05/17/17 08:19 Lasix PO 160 mg DAILY JIM Administration Hydromorphone HCl 4 mg 05/17/17 15:15 05/17/17 16:15 Dilaudid PO 4 mg QID PRN Administration PAIN Ceftriaxone Sodium 1 gm/ 100 mls @ 200 mls/hr 05/16/17 09:00 05/17/17 15:26 Sodium Chloride IV Infused DAILY JIM Infusion Levofloxacin 500 mg in 100 mls @ 100 mls/hr 05/16/17 14:00 05/17/17 16:05 Levaquin 500 Mg/100 Ml IV Infused Q24H JIM Infusion Insulin Aspart 1 - 9 unit 05/17/17 21:00 05/17/17 21:07 Novolog SUBQ 1 unit 0800,1200,1700,2100 JIM Administration Protocol Levothyroxine Sodium 125 mcg 05/16/17 07:00 05/17/17 06:38 Synthroid PO 125 mcg QDAC JIM Administration Losartan Potassium 100 mg 05/16/17 09:00 05/17/17 08:18 Cozaar PO 100 mg DAILY JIM Administration Morphine Sulfate 2 mg 05/15/17 15:42 05/17/17 20:30 Morphine (Carpuject) IVP 2 mg Q2HR PRN Administration Dyspnea Pantoprazole Sodium 40 mg 05/15/17 21:00 05/17/17 21:01 Protonix PO 40 mg QPM JIM Administration Polyethylene Glycol 17 gm 05/16/17 09:00 05/17/17 08:23 Miralax PO Not Given DAILY JIM Potassium Chloride 20 meq 05/16/17 08:00 05/17/17 08:19 Micro-K PO 20 meq DAILYWM JIM Administration Ranitidine HCl 150 mg 05/15/17 21:00 05/17/17 21:02 Zantac PO 150 mg BID JIM Administration Sodium Chloride 10 ml 05/15/17 15:42 05/16/17 13:05 Normal Saline Flush 0.9% IVP 10 ml PRN PRN Administration NEEDED PER PROVIDER ORDERS Sodium Chloride 10 ml 05/15/17 17:00 05/17/17 17:16 Normal Saline Flush 0.9% IVP 10 ml 0100,0900,1700 JIM Administration - Lab Result Fish Bone Diagrams: 05/18/17 04:53 05/18/17 04:53 - Additional Planning My Orders: My Active Orders 05/17/17 Wound Consult MAC [MAC] Routine Evaluate and Treat OT [OT] Routine Evaluate and Treat PT [PT] Routine 05/17/17 15:15 HYDROmorphone [Dilaudid] 4 mg PO QID PRN 05/17/17 21:00 Insulin Aspart [NovoLOG] 1 - 9 unit SUBQ 0800,1200,1700,2100 Subjective - Subjective Patient Reports: Other (No SOB at rest, no wheezing or cough.) Nursing Reports: Other (iv was NS at 83 cc/hr since 020 and he is "puffy" per his RN.) Objective Vital Signs: Vital Signs - 24 hr 05/17/17 05/17/17 05/17/17 00:00 04:23 07:33 Temperature 36.7 C 36.8 C Heart Rate 74 Heart Rate [ 82 78 Brachial] Heart Rate [ Sitting] Heart Rate [ Supine] Respiratory 18 18 20 Rate Blood Pressure 115/80 107/72 [Right Brachial artery] Blood Pressure [Sitting] Blood Pressure [Supine] O2 Saturation 100 100 05/17/17 05/17/17 05/17/17 08:00 12:00 14:30 Temperature 36.8 C 36.9 C Heart Rate Heart Rate [ 89 70 Brachial] Heart Rate [ 81 Sitting] Heart Rate [ 70 Supine] Respiratory 20 20 Rate Blood Pressure 111/74 112/77 [Right Brachial artery] Blood Pressure 125/67 [Sitting] Blood Pressure 93/65 [Supine] O2 Saturation 98 98 05/17/17 05/17/17 16:00 20:15 Temperature 36.7 C 37.1 C Heart Rate Heart Rate [ 84 88 Brachial] Heart Rate [ Sitting] Heart Rate [ Supine] Respiratory 20 16 Rate Blood Pressure 128/73 108/78 [Right Brachial artery] Blood Pressure [Sitting] Blood Pressure [Supine] O2 Saturation 100 100 Oxygen O2 Source Nasal cannula I&O (Last 24 Hrs): Intake and Output Totals x24h 05/15/17 05/16/17 05/17/17 23:59 23:59 23:59 Intake Total 300 3132.215 2240 Output Total 400 875 Balance -100 2257.215 2240 General: Alert, Oriented x3 HEENT: Mucous membr. moist/pink Neck: Supple, No JVD Neuro: Non Focal Cardiovascular: Regular rate, No murmurs Respiratory: No respiratory distress, Breath sounds nml Abdomen: Soft, No hepatospenomegaly Extremities: Other (Hands and pedal edema 2+.) - Results Results: Laboratory Results WBC 9.2 x10^3/uL (4.8-10.8) 05/16/17 05:40 RBC 2.93 10^6/uL (4.70-6.10) L 05/16/17 05:40 Hgb 9.0 g/dL (14.0-18.0) L 05/16/17 05:40 Hct 28.4 % (42.0-52.0) L 05/16/17 05:40 MCV 96.9 fL (80.0-94.0) H 05/16/17 05:40 MCH 30.6 pg (27.0-31.0) 05/16/17 05:40 MCHC 31.6 g/dL (32.0-36.0) L 05/16/17 05:40 RDW 17.6 % (12.0-15.0) H 05/16/17 05:40 Plt Count 112 10^3/uL (130-450) L 05/16/17 05:40 MPV 9.8 fL (7.4-11.4) 05/16/17 05:40 Neut # 7.2 10^3/uL (1.5-6.6) H 05/16/17 05:40 Lymph # 1.4 10^3/uL (1.5-3.5) L 05/16/17 05:40 [place] # 0.5 10^3/uL (0.0-1.0) 05/16/17 05:40 Eos # 0.1 10^3/uL (0.0-0.7) 05/16/17 05:40 Baso # 0.0 10^3/uL (0.0-0.1) 05/16/17 05:40 Absolute Nucleated RBC 0.02 x10^3/uL 05/16/17 05:40 Nucleated RBC % 0.2 /100WBC 05/16/17 05:40 PT 12.0 secs (9.9-12.6) 05/15/17 13:48 INR 1.1 (0.8-1.2) 05/15/17 13:48 APTT 28.6 secs (24.9-33.3) 05/15/17 13:48 D-Dimer 389.1 ng/mL (200.0-255.0) H 05/15/17 13:48 Sodium 139 mmol/L (135-145) 05/16/17 05:40 Potassium 4.4 mmol/L (3.5-5.0) 05/16/17 05:40 Chloride 96 mmol/L (101-111) L 05/16/17 05:40 Carbon Dioxide 33 mmol/L (21-32) H 05/16/17 05:40 Anion Gap 10.0 (6-13) 05/16/17 05:40 BUN 30 mg/dL (6-20) H 05/16/17 05:40 Creatinine 1.4 mg/dL (0.6-1.2) H 05/16/17 05:40 Estimated GFR (MDRD) 60 (>89) L 05/16/17 05:40 Glucose 138 mg/dL (70-100) H 05/16/17 05:40 Glycated Hemoglobin 8.3 % (4.6-6.2) H 05/16/17 05:40 Estim Average Glucose 192 (70-100) H 05/16/17 05:40 Lactic Acid 1.3 mmol/L (0.5-2.2) 05/15/17 13:48 Calcium 9.4 mg/dL (8.5-10.3) 05/16/17 05:40 Magnesium 1.9 mg/dL (1.7-2.8) 05/15/17 13:48 Total Bilirubin 0.8 mg/dL (0.2-1.0) 05/15/17 13:48 AST 18 IU/L (10-42) 05/15/17 13:48 ALT 20 IU/L (10-60) 05/15/17 13:48 Alkaline Phosphatase 61 IU/L (42-121) 05/15/17 13:48 Total Creatine Kinase 89 IU/L (22-269) 05/15/17 13:48 CK-MB (CK-2) 6.6 ng/mL (0.6-6.3) H 05/15/17 13:48 Troponin I 0.26 ng/mL (<0.49) 05/16/17 05:40 Total Protein 6.7 g/dL (6.7-8.2) 05/15/17 13:48 Albumin 3.7 g/dL (3.2-5.5) 05/15/17 13:48 Globulin 3.0 g/dL (2.1-4.2) 05/15/17 13:48 Albumin/Globulin Ratio 1.2 (1.0-2.2) 05/15/17 13:48 Lipase < 10 U/L (22-51) L 05/15/17 13:48 TSH 0.58 uIU/mL (0.34-5.60) 05/15/17 13:48 Urine Color YELLOW 05/15/17 13:20 Urine Clarity CLOUDY (CLEAR) 05/15/17 13:20 Urine pH 5.5 PH (5.0-7.5) 05/15/17 13:20 Ur Specific [place] 1.015 (1.002-1.030) 05/15/17 13:20 Urine Protein NEGATIVE mg/dL (NEGATIVE) 05/15/17 13:20 Urine Glucose (UA) 250 mg/dL (NEGATIVE) H 05/15/17 13:20 Urine Ketones NEGATIVE mg/dL (NEGATIVE) 05/15/17 13:20 Urine Occult Blood NEGATIVE (NEGATIVE) 05/15/17 13:20 Urine Nitrite POSITIVE (NEGATIVE) H 05/15/17 13:20 Urine Bilirubin NEGATIVE (NEGATIVE) 05/15/17 13:20 Urine Urobilinogen 0.2 (NORMAL) E.U./dL (NORMAL) 05/15/17 13:20 Ur Leukocyte Esterase SMALL (NEGATIVE) H 05/15/17 13:20 Urine RBC 0-5 /HPF (0-5) 05/15/17 13:20 Urine WBC 6-10 /HPF (0-3) H 05/15/17 13:20 Ur Squamous Epith Cells NONE SEEN (<= Few) 05/15/17 13:20 Urine Bacteria Many /HPF (None Seen) H 05/15/17 13:20 Ur Microscopic Review INDICATED 05/15/17 13:20 Urine Culture Comments INDICATED 05/15/17 13:20 Last Dose Date Unknown 05/15/17 13:48 Last Dose Time Unknown 05/15/17 13:48 Digoxin 1.8 ng/mL 05/15/17 13:48 Ethyl Alcohol < 5.0 mg/dL 05/15/17 13:48 - Procedures Procedures: Procedures PACKED CELL TRANSFUSION (08/31/14)
[2017-05-18] MEDS: MORPHINE 2 MG/ML CARPUJECT IVP PRN (01:00)
[2017-05-18] MEDS: SODIUM CHLORIDE FLUSH 0.9% 10 ML SYRINGE IVP SCH ×2 (01:01→09:45)
[2017-05-18] MEDS: IPRATROPIUM/ALBUTEROL 3 ML NEB INH PRN (03:50)
[2017-05-18 05:29] LABS: HGB - HEMOGLOBIN 8.3 g/dL (14.0-18.0); MEAN CORPUSCULAR HEMOGLOBIN 30.6 pg (27.0-31.0); MEAN CORPUSCULAR HGB CONC 31.8 g/dL (32.0-36.0); MEAN CORPUSCULAR VOLUME 96.4 fL (80.0-94.0); MEAN PLATELET VOLUME 9.9 fL (7.4-11.4); RED BLOOD COUNT 2.71 10^6/uL (4.70-6.10); RED CELL DISTRIBUTION WIDTH 17.4 % (12.0-15.0); WHITE BLOOD COUNT 7.2 x10^3/uL (4.8-10.8)
[2017-05-18 05:33] LABS: CALCIUM 9.4 mg/dL (8.5-10.3); CREATININE 1.4 mg/dL (0.6-1.2)
[2017-05-18] MEDS: LEVOTHYROXINE 125 MCG TABLET PO SCH (06:44)
[2017-05-18] MEDS: SODIUM CHLORIDE FLUSH 0.9% 10 ML SYRINGE IVP PRN (06:51)
[2017-05-18] MEDS: ALLOPURINOL 100 MG TABLET PO SCH (09:36)
[2017-05-18] MEDS: POTASSIUM CHLORIDE 10 MEQ CAPSULE PO SCH (09:36)
[2017-05-18] MEDS: INSULIN ASPART 300 UNIT/3 ML PEN SUBQ SCH ×2 (09:36→12:37)
[2017-05-18] MEDS: POLYETHYLENE GLYCOL 3350 17 GM PACKET PO SCH (09:37)
[2017-05-18] MEDS: ENOXAPARIN 40 MG/0.4 ML SYRINGE SUBQ SCH (09:37)
[2017-05-18] MEDS: LOSARTAN 50 MG TABLET PO SCH (09:37)
[2017-05-18] MEDS: HYDROmorphone 2 MG TABLET PO PRN (09:37)
[2017-05-18] MEDS: CARVEDILOL 12.5 MG TABLET PO SCH (09:37)
[2017-05-18] MEDS: FUROSEMIDE 40 MG TABLET PO SCH (09:37)
[2017-05-18] MEDS ORDERED: SODIUM CHLORIDE 0.9% MINIBAG 100 ML IV ONE (09:38)
[2017-05-18] MEDS: DIGOXIN 125 MCG TABLET PO SCH (09:38)
[2017-05-18] MEDS: cefTRIAXone 1 GM in SODIUM CHLORIDE 0.9% MINIBAG 100 ML IV SCH (09:46)
--- NOTE | 2017-05-18 12:27 | Discharge Plan ---
Discharge Plan Disposition: Home, Self Care Condition: Stable Prescriptions: Levofloxacin [Levaquin] 750 mg PO DAILY #7 tablet Diet: Diabetic Activity Restrictions: Activity as Tolerated Shower Restrictions: No Driving Restrictions: Yes Assistance Devices: Walker Weight Bearing: Full Weight Additional Instructions or Follow Up instructions: Resume all your pre-hospital mdications. Take the antibiotics until the bottle is done. Use your oxygen as previously ordered. See your Primary Care provider and Coupon Clerk as previously scheduled. No Smoking: If you smoke, Please STOP! Call for help. Follow-up with: Alon Patel MD [Primary Care Provider] -
[2017-05-18 13:16] VITALS: BP 107/64
--- NOTE | 2017-05-30 02:43 | DISCHARGE SUMMARY ---
Physician: Kerri Conn MD DATE OF ADMISSION: 05/15/2017 DATE OF DISCHARGE: 05/18/2017 HISTORY OF PRESENT ILLNESS: This is a 76-year-old black male with a history of diabetes, ischemic cardiomyopathy with a biventricular defibrillator, history of anemia, CKD, and COPD requiring oxygen at home. The patient presented with a 4-day history of worsening shortness of breath with orthopnea, mild leg edema, increased respiratory rate. When he awoke , he was also found to be confused, and the could not awaken him and she called an ambulance. The paramedics found a fingerstick glucose of 17 but otherwise stable heart rate and blood pressure. He required 2 amps of D50 and then awoke. He described a cough and shortness of breath in the emergency room and was found to have a pneumonia on chest x-ray, CHF on chest x-ray, and urinalysis showing a UTI. He was admitted for management of these. HOSPITAL COURSE AND DISCHARGE DIAGNOSES 1. Acute on chronic systolic heart failure. The patient underwent an echocardiogram showing left ventricular ejection fraction of 20%-25% with global hypokinesis and an enlarged left ventricular cavity size at 6.5 cm, enlarged right ventricular size, severe LA and RA enlargement, mild mitral regurgitation, moderate tricuspid regurgitation, PA pressure 65 mmHg. The patient was started on IV diuretics and improved in 24-48 hours. He also required higher settings of supplemental oxygen. His troponin values were elevated but in a flat pattern of 0.20, 0.30 and 0.26, not consistent with an acute coronary event. The patient' s carvedilol and other congestive heart failure medications were continued throughout this course. His digoxin level was 1.8 while here. 2. Status post defibrillator. The patient did have several episodes of nonsustained ventricular tachycardia. His electrolytes and magnesium were followed to keep them adequately replaced. The biventricular portion of the defibrillator was noted to be functioning properly on telemetry. 3. Community-acquired pneumonia. The patient was started on IV Rocephin and Levaquin and transitioned to Levaquin 750 mg p.o. daily for an additional 7 days after discharge. 4. Urinary tract infection. The patient's IV antibiotics of Rocephin and Levaquin covered both the pneumonia and urinary tract infection. The patient had no symptoms of the urinary tract infection. 5. Hypoglycemia. The patient had several more low glucose readings of 33, 51 and 42 and required IV D5NS for the first day. Following this, his diabetes was managed with a diabetic diet and sliding scale insulin coverage. It is unclear why he had an entire day of documented low glucoses, possibly because of poor p.o. intake with the new weakness from infections. 6. Fmj-[id number]-iggpnjcpi diabetes. The patient reports that he had already previously been transitioned from needing outpatient insulin to oral agents only to diet- controlled diabetes only. 7. Anemia. This was felt to be anemia of chronic disease as the patient had a negative stool guaiac and had a stable hemoglobin throughout his course. The plan was for iron level testing as well as B12 and folate, but no results are available at the time of discharge. 8. Chronic kidney disease. The patient's creatinine was 1.5 on admission and 1.4 at discharge. LABORATORY DATA AND IMAGING: Reviewed and summarized above. ALLERGIES 1. GRAPEFRUIT. 2. IRON. MEDICATIONS AT THE TIME OF DISCHARGE 1. Allopurinol 300 mg daily. 2. Alprazolam 0.5 mg t.i.d. p.r.n. anxiety. 3. Carvedilol 25 mg b.i.d. 4. Cyclobenzaprine 5 mg p.o. t.i.d. p.r.n. 5. Dexamethasone 20 mg p.o. every Saturday, which he was on before admission 6. Lanoxin 125 mcg p.o. daily. 7. Doxazosin 2 mg p.o. every evening. 8. Fentanyl patch topically every 3 days. 9. Lasix 160 mg p.o. daily. 10. Dilaudid 4 mg p.o. q.i.d. p.r.n. pain. 11. Levaquin 750 mg p.o. daily for 7 days. 12. Levothyroxine 125 mcg p.o. daily. 13. Losartan 100 mg p.o. daily. 14. Lovastatin 20 mg p.o. every evening. 15. Reglan p.r.n. 16. Omeprazole 20 mg p.o. every evening. 17. Potassium chloride 20 mEq p.o. daily. 18. Zantac 150 mg p.o. b.i.d. 19. Ambien 10 mg p.o. q.p.m. p.r.n. insomnia. CONDITION AT DISCHARGE: Stable. PHYSICAL EXAMINATION AT DISCHARGE VITAL SIGNS: Blood pressure 107/64, pulse of 80, in sinus rhythm with ventricular pacing. Oxygen saturation 100% on 1 liter nasal cannula. HEENT: Unremarkable with moist oral mucosa. NECK: Without JVD or carotid bruits. CHEST: Clear. HEART: Sounds normal. No gallop or heave. ABDOMEN: Soft with positive bowel sounds. EXTREMITIES: Trace pedal edema. No clubbing or cyanosis. NEUROLOGIC: Intact, but speech is somewhat slow. FOLLOWUP: With his PCP and patent legal assistant as already scheduled. CODE STATUS: FULL CODE. TIME REQUIRED TO COMPLETE THIS ENTIRE DISCHARGE AND DICTATION: 60 minutes. TD: 05/30/2017 02:42 CRISTIAN
== END 2017-05-18 13:30 | disposition home or self-care (01) | DRG 193 ==
LOC: EDUNIT# → ED 12:59 → MS2 15:42
PROVIDERS: ADMIT Internal Medicine; ATTEND Internal Medicine
DX: J18.9 Pneumonia, unspecified organism (principal); I50.23 Acute on chronic systolic (congestive) heart failure; E11.641 Type 2 diabetes mellitus with hypoglycemia with coma; J18.1 Lobar pneumonia, unspecified organism; N39.0 Urinary tract infection, site not specified; C90.00 Multiple myeloma not having achieved remission; J44.0 Chronic obstructive pulmonary disease with (acute) lower respiratory infection; I44.7 Left bundle-branch block, unspecified; I11.0 Hypertensive heart disease with heart failure; I50.9 Heart failure, unspecified; E11.9 Type 2 diabetes mellitus without complications; I25.2 Old myocardial infarction; E03.9 Hypothyroidism, unspecified; I48.91 Unspecified atrial fibrillation; K42.9 Umbilical hernia without obstruction or gangrene; F17.200 Nicotine dependence, unspecified, uncomplicated; I47.2 Ventricular tachycardia; Z79.4 Long term (current) use of insulin; R09.02 Hypoxemia; E11.22 Type 2 diabetes mellitus with diabetic chronic kidney disease; N18.9 Chronic kidney disease, unspecified; I25.10 Atherosclerotic heart disease of native coronary artery without angina pectoris; I25.5 Ischemic cardiomyopathy; D63.8 Anemia in other chronic diseases classified elsewhere; F17.210 Nicotine dependence, cigarettes, uncomplicated; Z95.810 Presence of automatic (implantable) cardiac defibrillator; Z99.81 Dependence on supplemental oxygen; Z79.891 Long term (current) use of opiate analgesic
CPT/HCPCS: 36415; 71045; 80048; 80053; 80162; 80320; 81001; 81003; 82550; 82553; 83036; 83605; 83690; 83735; 83880; 84443; 84484; 85025; 85379; 85610; 85730; 87040; 87077; 87086; 93005; 93306; 94640; 94664; 94761; 96365; 96367; 99284; 99285

== ENCOUNTER 2017-05-28 02:34 | Outpatient (CLI) | payer MEDICARE, OTHER | END 2017-05-28 02:35 | disposition critical access hospital (66) | LOC: EMS 02:34 | PROVIDERS: ATTEND Surgery | DX: R06.02 Shortness of breath (principal); R05 Cough | CPT/HCPCS: A0425; A0427 ==

== ENCOUNTER 2017-05-28 02:56 | Emergency (ER) | payer MEDICARE, OTHER ==
--- NOTE | 2017-05-28 03:46 | XRAY Report ---
EXAM: CHEST RADIOGRAPHY EXAM DATE: 05/28/2017 03:36 AM. CLINICAL HISTORY: Shortness of breath, wheezing, Hx Pneumonia. COMPARISON: 05/15/2017. TECHNIQUE: 2 views. FINDINGS: Lungs/Pleura: Streaky atelectasis or infiltrate at the left base. No pleural effusion seen. No pneumo thorax. Mediastinum: Moderate cardiomegaly. Aortic atherosclerosis. Other: Implanted defibrillator is unchanged. IMPRESSION: 1. Cardiomegaly. 2. Streaky left basilar atelectasis or infiltrate. This is similar or slightly improved compared with the prior exam. [facility] Referring Provider Line: [phone] SITE ID: [id number]
--- NOTE | 2017-05-28 05:33 | ED Physician Documentation ---
PD HPI DYSPNEA - Stated complaint Stated Complaint: SOA - Chief complaint Chief Complaint: Resp - History obtained from History obtained from: Patient - History of Present Illness Timing - onset: Yesterday Timing - details: Gradual onset, Waxing and waning Pain level max: 0 Pain level now: 0 Improved by: O2, Rest Worsened by: Exertion, Coughing Associated symptoms: Cough, Bilateral edema. No: Fever, Hemoptysis, Chest pain / discomfort, Palpitations, Diaphoresis, Unilateral edema Recently seen: Admitted (admitted 05/15 and $/05/18 for pneumonia. has completed course of antibiotics (levaquin)) Review of Systems Constitutional: reports: Reviewed and negative Nose: reports: Reviewed and negative Throat: denies: Sore throat Cardiac: reports: Reviewed and negative Respiratory: reports: Dyspnea, Cough. denies: Wheezing GI: reports: Reviewed and negative : denies: Dysuria, Frequency PD PAST MEDICAL HISTORY - Past Medical History Cardiovascular: Congestive heart failure, Hypertension, High cholesterol, Coronary artery disease, [place], Atrial fibrillation, Arrhythmia Respiratory: None Neuro: None Endocrine/Autoimmune: Type 2 diabetes, HyPOthyroidism GI: Chronic constipation, Pancreatitis : Renal insuffiency HEENT: None Psych: None Musculoskeletal: Osteoarthritis, Gout Derm: None - Past Surgical History Past Surgical History: Yes Ortho: Knee replacement Cardiovascular: Pacemaker, AICD - Present Medications Home Medications: Ambulatory Orders Medication Instructions Recorded Confirmed Allopurinol 300 mg PO DAILY 01/19/13 05/15/17 Digoxin [Lanoxin] 125 mcg PO DAILY 01/19/13 05/15/17 Furosemide [Lasix] 160 mg PO DAILY 01/19/13 05/15/17 Levothyroxine Sodium [Levoxyl] 125 mcg PO QDAC 01/19/13 05/15/17 Lovastatin [Altoprev] 20 mg PO HS 01/19/13 05/15/17 Potassium Chloride 20 meq PO DAILY 01/19/13 05/15/17 Ranitidine HCl [Acid Control] 150 mg PO BID 01/19/13 05/15/17 Zolpidem [Ambien] 10 mg PO QPM PRN 01/19/13 05/15/17 Omeprazole [PriLOSEC] 20 mg PO QPM 08/13/13 05/15/17 Metoclopramide [Reglan] 5 mg PO TID PRN 09/02/14 05/15/17 Alprazolam 0.5 mg PO TID PRN 01/13/16 05/15/17 Carvedilol 25 mg PO BID 01/13/16 05/15/17 Cyclobenzaprine HCl 5 mg PO TID PRN 01/13/16 05/15/17 Dexamethasone 20 mg PO FR 01/13/16 05/15/17 Doxazosin Mesylate 2 mg PO QPM 01/13/16 05/15/17 Hydromorphone HCl [Dilaudid] 4 mg PO QID PRN 01/13/16 05/15/17 Insulin Glargine [Lantus Solostar] 23 unit SUBQ QPM 05/15/17 05/15/17 Losartan Potassium 100 mg PO DAILY 05/15/17 05/15/17 fentaNYL [Fentanyl 75mcg patch] 1 each TD Q3D 05/15/17 05/15/17 Levofloxacin [Levaquin] 750 mg PO DAILY #7 tablet 05/18/17 Albuterol 2.5 mg INH Q4H PRN #30 neb 05/28/17 Lidocaine Patch 5% [Lidoderm Patch] 1 patch TOP DAILY PRN #10 patch 05/28/17 - Allergies Allergies/Adverse Reactions: Allergies Allergy/AdvReac Type Severity Reaction Status Date / Time grapefruit Allergy Unknown Verified 05/28/17 03:02 iron Allergy Unknown Verified 01/29/17 11:49 - Social History Does the pt smoke?: Yes Smoking Status: Current every day smoker Does the pt drink ETOH?: No Does the pt have substance abuse?: No - Immunizations Immunizations are current?: No Immunizations: Other immun not current - POLST Patient has POLST: Yes PD ED PE NORMAL - Vitals Vital signs reviewed: Yes - General General: Alert and oriented X 3, No acute distress, Well developed/nourished - Neck Neck: Supple, no meningeal sign - Cardiac Cardiac: RRR, No murmur, No gallop, No rub - Respiratory Respiratory: No respiratory distress, Other (bibasilar rales) - Abdomen Abdomen: Soft, Non tender, Non distended - Back Back: No spinal TTP - Derm Derm: Normal color, Warm and dry, No rash - Neuro Neuro: Alert and oriented X 3 PD ED PE EXPANDED - Extremities Extremities: Pedal edema bilateral (1+) Results - Vitals Vitals: Oxygen O2 Source Room air - EKG (time done) No standard instances Rate: Rate (enter#) (76) Rhythm: Paced Milnor: LAD Compare to prior EKG: Unchanged from prior EKG (previous EKG has different rate but same morphology s/o paced rhythm ) - Labs Labs: Laboratory Tests 05/28/17 05/28/17 05/28/17 03:06 03:06 03:06 WBC 7.9 RBC 2.72 L Hgb 8.5 L Hct 26.4 L MCV 97.1 H MCH 31.4 H MCHC 32.3 RDW 16.9 H Plt Count 127 L MPV 11.1 Neut # 5.3 Lymph # 2.1 Evangeline # 0.4 Eos # 0.1 Baso # 0.0 Absolute Nucleated RBC 0.02 Nucleated RBC % 0.3 Sodium 137 Potassium 4.1 Chloride 94 L Carbon Dioxide 35 H Anion Gap 8.0 BUN 30 H Creatinine 1.5 H Estimated GFR (MDRD) 55 L Glucose 188 H Calcium 9.6 Total Bilirubin 0.2 AST 23 ALT 27 Alkaline Phosphatase 69 Troponin I 0.22 B-Natriuretic Peptide Total Protein 5.9 L Albumin 3.4 Globulin 2.5 Albumin/Globulin Ratio 1.4 Lipase 16 L Urine Color Urine Clarity Urine pH Ur Specific [place] Urine Protein Urine Glucose (UA) Urine Ketones Urine Occult Blood Urine Nitrite Urine Bilirubin Urine Urobilinogen Ur Leukocyte Esterase Ur Microscopic Review Urine Culture Comments 05/28/17 05/28/17 03:06 06:03 WBC RBC Hgb Hct MCV MCH MCHC RDW Plt Count MPV Neut # Lymph # Evangeline # Eos # Baso # Absolute Nucleated RBC Nucleated RBC % Sodium Potassium Chloride Carbon Dioxide Anion Gap BUN Creatinine Estimated GFR (MDRD) Glucose Calcium Total Bilirubin AST ALT Alkaline Phosphatase Troponin I B-Natriuretic Peptide 428 H Total Protein Albumin Globulin Albumin/Globulin Ratio Lipase Urine Color YELLOW Urine Clarity CLEAR Urine pH 7.0 Ur Specific [place] 1.010 Urine Protein NEGATIVE Urine Glucose (UA) NEGATIVE Urine Ketones NEGATIVE Urine Occult Blood NEGATIVE Urine Nitrite NEGATIVE Urine Bilirubin NEGATIVE Urine Urobilinogen 0.2 (NORMAL) Ur Leukocyte Esterase NEGATIVE Ur Microscopic Review NOT INDICATED Urine Culture Comments NOT INDICATED - Rads (name of study) chest xray Radiology: Prelim report reviewed, See rad report PD MEDICAL DECISION MAKING - ED course Complexity details: reviewed old records, reviewed results, re-evaluated patient , considered differential, d/w patient, d/w family ED course: patient was able to maintain low-mid 90s pulse ox on room air during ED stay. his anemia is slightly improved from h/h on 05/18 when he was discharged. his BNP , TNI, and CXR are also all improved compared to results from the end of his recent hospital stay. he was able to speak full sentences and was in no respiratory distress during ED stay. denied chest pain. given duoneb and xopenex as well as lasix iv (PMH includes COPD, and he takes 160 lasix qd). also given lidoderm patch for subacute pain (several weeks) right lower back which he initially thought was a bedsore, although there was none on exam. no rash or bony or abdominal tenderness to suggest etiology. Departure - Departure Disposition: 01 Home, Self Care Clinical Impression: Chronic anemia, Dyspnea Condition: Good Instructions: ED Dyspnea Shortness of Breath Follow-Up: Alon Patel MD [Primary Care Provider] - (Call to arrange for next available appointment) Prescriptions: Albuterol 2.5 mg INH Q4H PRN #30 neb PRN Reason: Wheezing Lidocaine Patch 5% [Lidoderm Patch] 1 patch TOP DAILY PRN #10 patch PRN Reason: Pain Discharge Date/Time: 05/28/17 08:45
[2017-05-28 06:00] LABS: BASOPHILS % (AUTO) 0.2 %; EOSINOPHILS # (AUTO) 0.1 10^3/uL (0.0-0.7); EOSINOPHILS % (AUTO) 0.9 %; HGB - HEMOGLOBIN 8.5 g/dL (14.0-18.0); LYMPHOCYTES # (AUTO) 2.1 10^3/uL (1.5-3.5); MEAN CORPUSCULAR HEMOGLOBIN 31.4 pg (27.0-31.0); MEAN CORPUSCULAR HGB CONC 32.3 g/dL (32.0-36.0); MEAN CORPUSCULAR VOLUME 97.1 fL (80.0-94.0); MEAN PLATELET VOLUME 11.1 fL (7.4-11.4); MONOCYTES # (AUTO) 0.4 10^3/uL (0.0-1.0); MONOCYTES % (AUTO) 5.1 %; NEUTROPHILS # (AUTO) 5.3 10^3/uL (1.5-6.6); NEUTROPHILS % (AUTO) 66.8 %; PLT - PLATELET COUNT 127 10^3/uL (130-450); RED BLOOD COUNT 2.72 10^6/uL (4.70-6.10); RED CELL DISTRIBUTION WIDTH 16.9 % (12.0-15.0); WHITE BLOOD COUNT 7.9 x10^3/uL (4.8-10.8)
[2017-05-28 06:06] LABS: BILIRUBIN,URINE NEGATIVE (NEGATIVE); GLUCOSE, URINE (UA) NEGATIVE (NEGATIVE); KETONES,URINE (UA) NEGATIVE (NEGATIVE); LEUKOCYTE ESTERASE, URINE NEGATIVE (NEGATIVE); NITRITE,URINE NEGATIVE (NEGATIVE); OCCULT BLOOD,URINE NEGATIVE (NEGATIVE); PROTEIN,URINE NEGATIVE (NEGATIVE); UROBILINOGEN,URINE 0.2 (NORMAL) E.U./dL (NORMAL)
[2017-05-28 06:07] LABS: CLARITY,URINE CLEAR (CLEAR)
[2017-05-28 06:09] LABS: ALBUMIN 3.4 g/dL (3.2-5.5); ALBUMIN/GLOBULIN RATIO 1.4 (1.0-2.2); BILIRUBIN,TOTAL 0.2 mg/dL (0.2-1.0); CALCIUM 9.6 mg/dL (8.5-10.3); CREATININE 1.5 mg/dL (0.6-1.2); TOTAL PROTEIN 5.9 g/dL (6.7-8.2)
[2017-05-28] MEDS ORDERED: FUROSEMIDE 40 MG/4 ML VIAL IVP STA (07:22)
[2017-05-28] MEDS ORDERED: LIDOCAINE PATCH 5% TOP PRN (07:23)
[2017-05-28] MEDS ORDERED: LEVALBUTEROL 1.25 MG/3 ML NEB INH STA ×2 (07:24→07:54)
[2017-05-28] MEDS ORDERED: FUROSEMIDE 20 MG/2 ML VIAL IVP ONE (07:41)
[2017-05-28] MEDS ORDERED: LIDOCAINE PATCH 5% TOP STA (07:56)
[2017-05-28 08:44] VITALS: BP 152/118
== END 2017-05-28 08:45 | disposition home or self-care (01) ==
LOC: EDUNIT# → SUPCPDRO 02:56 → ED 02:56
DX: D64.89 Other specified anemias (principal); R06.00 Dyspnea, unspecified; I11.0 Hypertensive heart disease with heart failure; I50.9 Heart failure, unspecified; I25.10 Atherosclerotic heart disease of native coronary artery without angina pectoris; E03.9 Hypothyroidism, unspecified; E78.00 Pure hypercholesterolemia, unspecified; I48.91 Unspecified atrial fibrillation; I48.92 Unspecified atrial flutter; E11.9 Type 2 diabetes mellitus without complications; Z79.4 Long term (current) use of insulin; F17.200 Nicotine dependence, unspecified, uncomplicated; Z95.810 Presence of automatic (implantable) cardiac defibrillator; Z96.659 Presence of unspecified artificial knee joint
CPT/HCPCS: 36415; 71046; 80053; 81003; 83690; 83880; 84484; 85025; 93005; 96374; 99284; A9270; 81001; 87086